=== PATIENT | male | born 1950 | race Caucasian/White ===

== ENCOUNTER 2022-03-11 17:40 | Emergency (ER) | payer MEDICARE, SELFPAY ==
[2022-03-11 17:46] VITALS: BP 151/84; PULSE 78; RESP 20; TEMP 36.5; O2SAT 100
[2022-03-11] MEDS: ONDANSETRON HCL ODT 4 MG TABLET PO (18:01)
[2022-03-11] MEDS: LIDOCAINE HCL 2% VISC SOLN 15 ML UDC 10 ML PO (18:01)
[2022-03-11] MEDS: MAG HYDROX/AL HYDROX/SIMETH 30 ML UDC PO (18:01)
--- NOTE | 2022-03-11 18:01 | ED.ABDPAIN ---
HPI - Abdominal Pain General Chief Complaint: Abdominal Pain Stated Complaint: Vomiting/Abdominal Pain Time Seen by Provider: 03/11/22 18:16 Source: patient and RN notes reviewed Mode of arrival: ambulatory Limitations: no limitations History of Present Illness HPI narrative: 71-year-old male presents with concern for epigastric pain and vomiting that started at 130 today after eating sardines. He reports regurgitating many times since 130. He reports epigastric burning. He denies chest pain, shortness of breath. He denies diarrhea or fever. MD elicited complaint: abdominal pain Related Data Allergies Allergy/AdvReac Type Severity Reaction Status Date / Time No Known Allergies Allergy Verified 03/11/22 17:54 Review of Systems Review of Systems: CONSTITUTIONAL: Denies malaise, chills, sweats, or fever. ENT: Denies rhinorrhea, congestion, sinus pain, otalgia or sore throat. CARDIOVASCULAR: Denies chest pain, palpitations, or edema. RESPIRATORY: Denies cough or dyspnea. GASTROINTESTINAL: Reports epigastric abdominal pain, vomiting. Denies nausea diarrhea, bloody, or mucous stools. GENITOURINARY: Denies dysuria or hematuria. MUSCULOSKELETAL: Denies myalgia. NEUROLOGIC: Denies headache. All systems reviewed & are unremarkable except as noted in HPI and below [facility] Social History Social History Smoking status: Never smoker Alcohol intake: never Comments At time of signature, agree with nursing past medical, surgical, social and family history. There is no relevant family history pertinent to the presenting complaint Exam Narrative: GENERAL: Nontoxic-appearing and in no acute distress. HEAD: Normocephalic, atraumatic. EYES: PERRLA, conjunctivae clear, and EOMI. ENT: Nares clear, turbinates pink, no rhinorrhea or epistaxis. Mucous membranes moist. Oropharynx without edema, erythema, or lesions. Tonsils not enlarged and without exudate. NECK: Supple. No lymphadenopathy CHEST: Speaks in full sentences. No respiratory distress. HEART: Regular rate and rhythm. ABDOMEN: Soft, flat, nondistended. Very mild high epigastric tenderness with deep palpation. No guarding, rebound tenderness, or rigid. No pulsatilla masses. Bowel sounds present in all four quadrants. No organomegaly. Negative Godinez?s sign. No periumbilical tenderness. No Supra public tenderness or distension. Good femoral pulses bilaterally. No hernia noted. No scars or surface trauma. SKIN: Warm, dry, no rash. NEURO: Alert and oriented x3. PSYCH: Normal mood and affect Course Course Emergency Course: Patient advised that if symptoms do not improve or worsen he should seek reevaluation in the emergency department. Patient is aware of diagnosis, understands and agrees to treatment plan. Anticipatory guidance given. Patient agrees to follow-up as directed and is aware of reasons to seek care at the emergency department. Portions of this record may have been created with voice recognition software Level of Care: Express Care Visit Reevaluation(s) Reevaluation #1: Patient reports pain went from a 10 to a 5 after GI cocktail. Date: 03/11/22 Time: 18:36 Vital Signs Vital signs: Vital Signs Temperature 97.7 F 03/11/22 17:46 Pulse Rate 78 03/11/22 17:46 Respiratory Rate 20 03/11/22 17:46 Blood Pressure 151/84 H 03/11/22 17:46 Pulse Oximetry 100 03/11/22 17:46 Oxygen Delivery Room Air 03/11/22 17:46 Temperature 97.7 F 03/11/22 17:46 Pulse Rate 78 03/11/22 17:46 Respiratory Rate 20 03/11/22 17:46 Blood Pressure 151/84 H 03/11/22 17:46 Pulse Oximetry 100 03/11/22 17:46 Oxygen Delivery Room Air 03/11/22 17:46 Reviewed. MDM - Abdominal Pain MDM Narrative Medical decision making narrative: No evidence of pancreatitis, AAA, cholecystitis, choledocholithiasis, cholangitis, mesenteric ischemia, small bowel obstruction, diverticulitis, colitis, appendicitis, or pelvic etiology such as testicular torsion.
--- NOTE | 2022-03-11 18:17 | ECG_ITS ---
Measurements Intervals [place] Rate: 74 P: -11 NC: 169 QRS: 15 QRSD: 100 T: 31 QT: 381 QTc: 425 Interpretive Statements SINUS RHYTHM NORMAL ECG NO PREVIOUS ECG AVAILABLE FOR COMPARISON Electronically Signed On 03-12-2022 9:59:22 CDT by Philip Mcmillan M.D.
== END 2022-03-11 18:50 | disposition home or self-care (01) ==
PROVIDERS: Emergency Provider Nurse Practitioner
DX: R10.13 Epigastric pain (principal); H26.9 Unspecified cataract
CPT/HCPCS: 93005; 99203; A9270; G0463